=== PATIENT | female | born 1985 | race Asian ===

== ENCOUNTER 2017-02-23 14:47 | Emergency (ER) | payer BC ==
[2017-02-23 14:51] VITALS: BP 142/57; PULSE 71; TEMP 98; BMI 23.7
--- NOTE | 2017-02-23 15:19 | PDOC ---
History of Present Illness - General History Source: Patient Exam Limitations: No Limitations - History of Present Illness Initial Comments: 02/23/17 16:09 The patient is a 31 year old female with a significant past medical history of hypothyroidism, who presents to the ED accompanied with for intermittent abdominal pain for 4 days. She states she ate bread this morning with eggs and subsequently starting feeling abdominal pain radiating to the back. She states eating food makes the pain feel worse. Patient denies fever, chills, nausea, vomiting, diarrhea. She states she was experiencing migraine 2 days ago and was given migraine meds from her PCP. No fam history of gallstones. No allergies to meds. LMP: February 04, 2017 <Sandeep Landeros - Last Filed: 02/23/17 18:15> <Jair Rowell - Last Filed: 02/23/17 18:21> - General Chief Complaint: Pain Stated Complaint: ABD PAIN Time Seen by Provider: 02/23/17 15:14 Past History <Sandeep Landeros - Last Filed: 02/23/17 18:15> - Past Medical History Suicide Attempt (Hx): No - Reproductive History (#): 2 Para: 2 Cervical CA: No Dysfunctional Uterine Bleeding: No Ectopic : No Endometrial CA: No Polycystic Ovaries: No Therapeutic (s) & number: No Tubal Ligation: No Spontaneous : 1 - Psycho/Social/Smoking Cessation Hx Anxiety: No Suicidal Ideation: No Smoking History: Never smoked Number of Cigarettes Smoked Daily: 0 Hx Alcohol Use: No Drug/Substance Use Hx: No Substance Use Type: None <Jair Rowell - Last Filed: 02/23/17 18:21> - Past Medical History Allergies/Adverse Reactions: Allergies Allergy/AdvReac Type Severity Reaction Status Date / Time No Known Allergies Allergy Verified 02/23/17 14:49 Home Medications: Ambulatory Orders Dicyclomine HCl [Bentyl -] 20 mg PO Q6H #28 tablet 02/23/17 Levothyroxine [Synthroid -] 75 mcg PO DAILY 02/23/17 Omeprazole 20 mg PO DAILY 02/23/17 Ranitidine [Zantac -] 300 mg PO ONCE #30 tablet 02/23/17 Review of Systems - Review of Systems Able to Perform ROS?: Yes Comments:: 02/23/17 16:09 GENERAL/CONSTITUTIONAL: No fever or chills. No weakness. HEAD, EYES, EARS, NOSE AND THROAT: No change in vision. No ear pain or discharge. No sore throat. CARDIOVASCULAR: No chest pain or shortness of breath. RESPIRATORY: No cough, wheezing, or hemoptysis. GASTROINTESTINAL: + abdominal pain radiating to the back. No nausea, vomiting, diarrhea or constipation. GENITOURINARY: No dysuria, frequency, or change in urination. MUSCULOSKELETAL: No joint or muscle swelling or pain. No neck or back pain. SKIN: No rash NEUROLOGIC: No headache, vertigo, loss of consciousness, or change in strength/ sensation. ENDOCRINE: No increased thirst. No abnormal weight change. HEMATOLOGIC/LYMPHATIC: No anemia, easy bleeding, or history of blood clots. ALLERGIC/IMMUNOLOGIC: No hives or skin allergy. <Sandeep Landeros - Last Filed: 02/23/17 18:15> *Physical Exam - Vital Signs Last Vital Signs Temp Pulse Resp BP Pulse Ox 98 F 71 18 142/57 99 02/23/17 14:49 02/23/17 14:49 02/23/17 14:49 02/23/17 14:49 02/23/17 14:49 - Physical Exam Comments: 02/23/17 16:10 GENERAL: Awake, alert, and fully oriented, in no acute distress HEAD: No signs of trauma EYES: PERRLA, EOMI, sclera anicteric, conjunctiva clear ENT: Auricles normal inspection, hearing grossly normal, nares patent, oropharynx clear without exudates. Moist mucosa NECK: Normal ROM, supple, no lymphadenopathy, JVD, or masses LUNGS: Breath sounds equal, clear to auscultation bilaterally. No wheezes, and no crackles HEART: Regular rate and rhythm, normal S1 and S2, no murmurs, rubs or gallops ABDOMEN: right upper quadrant tenderness to palpation. normoactive bowel sounds. No guarding, no rebound. No masses EXTREMITIES: Normal range of motion, no edema. No clubbing or cyanosis. No cords, erythema, or tenderness NEUROLOGICAL: Cranial nerves II through XII grossly intact. Normal speech, normal gait SKIN: Warm, Dry, normal turgor, no rashes or lesions noted. <Sandeep Landeros - Last Filed: 02/23/17 18:15> - Vital Signs Last Vital Signs Temp Pulse Resp BP Pulse Ox 98 F 71 18 142/57 99 02/23/17 14:49 02/23/17 14:49 02/23/17 14:49 02/23/17 14:49 02/23/17 14:49 <Jair Rowell - Last Filed: 02/23/17 18:21> ED Treatment Course - LABORATORY CBC & Chemistry Diagram: 02/23/17 15:45 02/23/17 15:45 - ADDITIONAL ORDERS Additional order review: 02/23/17 15:45 RBC 4.55 MCV 74.4 L MCHC 31.7 L RDW 17.2 H MPV 8.2 Neutrophils % 63.2 Lymphocytes % 18.4 D Monocytes % 5.1 Eosinophils % 12.8 H D Basophils % 0.5 - RADIOLOGY Radiology Studies Ordered: 02/23/17 18:15 EXAM: Ultrasound abdomen right upper quadrant IMAGES: 47 EXAM DATE AND TIME: 2017-02-23 16:18:19.0 REASON FOR EXAM: Right upper quadrant pain COMPARISON: None. FINDINGS: There are no stones or sludge in the gallbladder. The gallbladder wall is normal in thickness measuring 2.6 mm. No pericholecystic fluid. Presence or absence of a sonographic Black's was not reported The common bile duct is within normal limits measuring 3 mm The liver, pancreas and visualized portions of the abdominal aorta and IVC are unremarkable THIS DOCUMENT HAS BEEN ELECTRONICALLY SIGNED Eric Christine MD <Sandeep Landeros - Last Filed: 02/23/17 18:15> - LABORATORY CBC & Chemistry Diagram: 02/23/17 15:45 02/23/17 15:45 <Jair Rowell - Last Filed: 02/23/17 18:21> *DC/Admit/Observation/Transfer - Attestations Scribe Attestion: 02/23/17 16:11 Documentation prepared by Sandeep Landeros, acting as medical administrator for Jair Rowell MD/DO. <Sandeep Landeros - Last Filed: 02/23/17 18:15> - Discharge Dispostion Admit: No - Attestations Physician Attestion: 02/23/17 15:19 I, Dr. Jair Rowell, attest that this document has been prepared under my direction and personally reviewed by me in its entirety. I further attest, that it accurately reflects all work, treatment, procedures and medical decision -making performed by me. <Jair Rowell - Last Filed: 02/23/17 18:21> Diagnosis at time of Disposition: Biliary colic - Discharge Dispostion Disposition: HOME Condition at time of disposition: Improved - Prescriptions Prescriptions: Dicyclomine HCl [Bentyl -] 20 mg PO Q6H #28 tablet Ranitidine [Zantac -] 300 mg PO ONCE #30 tablet - Referrals Referrals: Bridget Henry MD [Primary Care Provider] - Matt Saul MD [Staff Physician] - - Patient Instructions Printed Discharge Instructions: DI for Biliary Colic Additional Instructions: Jan- All of your tests were normal but your symptoms indicate that the pain may be coming from your gallbladder. You need to follow up with a men's furnishings salesperson and you may need a test called a HIDA scan. Use the bentyl and the zantac for now. See the men's furnishings salesperson as soon as you can. Return to us if any problems. Decrease your fat intake. Best- Dr. Jair Rowell
[2017-02-23] MEDS ORDERED: morphine CARPU-JECT 4 MG/1 ML DISP.SYRIN IVPUSH ONE (15:30)
[2017-02-23] MEDS ORDERED: KETOROLAC TROMETHAMINE 30 MG/1 ML VIAL IVPUSH ONE (15:30)
[2017-02-23] MEDS ORDERED: ONDANSETRON 4 MG/2 ML VIAL IVPUSH ONE (15:30)
[2017-02-23] MEDS ORDERED: ONDANSETRON 4 MG/2 ML VIAL ONE (15:51)
[2017-02-23] MEDS ORDERED: KETOROLAC TROMETHAMINE 30 MG/1 ML VIAL ONE (15:51)
[2017-02-23] MEDS ORDERED: morphine CARPU-JECT 4 MG/1 ML DISP.SYRIN ONE (15:51)
[2017-02-23 16:02] LABS: BASOPHIL 0.5 % (0-2.0); EOSINOPHIL 12.8 % (0-4.5); MCH 23.6 pg (25.7-33.7); MCHC 31.7 g/dl (32.0-36.0); MEAN CELL VOLUME 74.4 fl (80-96); MEAN PLT VOLUME 8.2 fl (7.5-11.1); NEUTROPHILS 63.2 % (42.8-82.8); PLATELET COUNT 312 K/MM3 (134-434); RDW 17.2 % (11.6-15.6); WHITE BLOOD COUNT 7.5 K/mm3 (4.0-10.0)
[2017-02-23] MEDS ORDERED: SODIUM CHLORIDE 1,000 ML IV ONE (16:17)
[2017-02-23 16:22] LABS: URINE APPEARANCE CLEAR; URINE BILIRUBIN NEGATIVE (NEGATIVE); URINE BLOOD NEGATIVE (NEGATIVE); URINE COLOR STRAW; URINE GLUCOSE (UA) NEGATIVE (NEGATIVE); URINE KETONE NEGATIVE (NEGATIVE); URINE LEUK ESTERASE NEGATIVE (NEGATIVE); URINE NITRITE NEGATIVE (NEGATIVE); URINE PROTEIN NEGATIVE (NEGATIVE); URINE UROBILINOGEN NEGATIVE mg/dL (0.2-1.0)
[2017-02-23 16:32] LABS: ALBUMIN 3.8 g/dl (3.4-5.0); ALK PHOS 83 U/L (45-117); ANION GAP 8 (8-16); BILIRUBIN,TOTAL 0.3 mg/dL (0.2-1.0); CALCIUM 9.3 mg/dL (8.5-10.1); CO2 27 mmol/L (21-32); CREATININE 0.6 mg/dL (0.55-1.02); GLUCOSE,RANDOM 71 mg/dL (74-106); SGPT/ALT 21 U/L (12-78); TOT PROT 7.6 g/dl (6.4-8.2)
[2017-02-23 16:37] LABS: SGOT/AST 26 U/L (15-37)
== END 2017-02-23 18:48 | disposition home or self-care (01) ==
LOC: JER 14:47
PROC: 3E0337Z Introduction of Electrolytic and Water Balance Substance into Peripheral Vein, Percutaneous Approach (ICD-10-PCS; principal; 2017-02-23)
PROC: 3E033NZ Introduction of Analgesics, Hypnotics, Sedatives into Peripheral Vein, Percutaneous Approach (ICD-10-PCS; 2017-02-23)
PROC: 3E0333Z Introduction of Anti-inflammatory into Peripheral Vein, Percutaneous Approach (ICD-10-PCS; 2017-02-23)
PROC: 3E033GC Introduction of Other Therapeutic Substance into Peripheral Vein, Percutaneous Approach (ICD-10-PCS; 2017-02-23)
DX: K80.50 Calculus of bile duct without cholangitis or cholecystitis without obstruction (principal); E03.9 Hypothyroidism, unspecified
CPT/HCPCS: 36415; 76705-TC; 80053; 81003; 83690; 84703; 85025; 99284-25

== ENCOUNTER 2020-07-06 23:03 | Emergency (ER) | payer BC ==
[2020-07-06 23:10] VITALS: BP 133/72; PULSE 86; TEMP 98.1; BMI 23.6
[2020-07-07] MEDS ORDERED: METOCLOPRAMIDE HCL INJECTION 10 MG/2 ML VIAL IVPB ONE (00:05)
[2020-07-07] MEDS ORDERED: SODIUM CHLORIDE 0.9% 500 ML INFUS.BAG IV ONE (00:05)
[2020-07-07] MEDS ORDERED: METOCLOPRAMIDE HCL INJECTION 10 MG/2 ML VIAL ONE (00:32)
[2020-07-07 00:47] LABS: BASO % 0.3 % (0-2.0); EOS % 0.1 % (0-4.5); HEMOGLOBIN 12.9 GM/dL (10.7-15.3); LYMPH % 7.9 % (8-40); MCH 28.3 pg (25.7-33.7); MCHC 33.9 g/dl (32.0-36.0); MEAN CELL VOLUME 83.6 fl (80-96); MEAN PLT VOLUME 7.7 fl (7.5-11.1); MONO % 2.7 % (3.8-10.2); PLATELET COUNT 367 K/MM3 (134-434); RBC 4.55 M/mm3 (3.60-5.2); RDW 13.8 % (11.6-15.6); WHITE BLOOD COUNT 10.2 K/mm3 (4.0-10.0)
[2020-07-07 01:10] LABS: POTASSIUM 3.9 mmol/L (3.5-5.1)
[2020-07-07 01:12] LABS: CALCIUM 9.3 mg/dL (8.5-10.1)
[2020-07-07 01:13] LABS: ALBUMIN 4.1 g/dl (3.4-5.0)
[2020-07-07 01:16] LABS: CREATININE 0.7 mg/dL (0.55-1.3)
[2020-07-07 01:17] LABS: BILIRUBIN,TOTAL 0.3 mg/dL (0.2-1); TOT PROT 8.1 g/dl (6.4-8.2)
[2020-07-07] MEDS ORDERED: ACETAMINOPHEN 1000 MG/100 ML VIAL (NON FORMULARY) IVPB ONE (02:12)
[2020-07-07] MEDS ORDERED: ACETAMINOPHEN INJECTION 100 ML IVPB ONE (02:41)
[2020-07-07] MEDS ORDERED: KETOROLAC TROMETHAMINE 15 MG/ML VIAL IVPUSH ONE (04:00)
== END 2020-07-07 04:26 | disposition home or self-care (01) ==
LOC: JER 23:03
PROC: 3E0333Z Introduction of Anti-inflammatory into Peripheral Vein, Percutaneous Approach (ICD-10-PCS; principal; 2020-07-06)
PROC: 3E0333Z Introduction of Anti-inflammatory into Peripheral Vein, Percutaneous Approach (ICD-10-PCS; 2020-07-06)
PROC: 3E033GC Introduction of Other Therapeutic Substance into Peripheral Vein, Percutaneous Approach (ICD-10-PCS; 2020-07-06)
DX: R51.9 Headache, unspecified (principal); R11.2 Nausea with vomiting, unspecified
CPT/HCPCS: 36415; 70450-TC; 80053; 84703; 85025; 99284-25; J0131

== ENCOUNTER 2021-02-05 16:48 | Emergency (ER) | payer BC, OTHER ==
[2021-02-05 16:53] VITALS: BP 136/84; PULSE 98; TEMP 97.8; BMI 22.1
[2021-02-05] MEDS ORDERED: KETOROLAC TROMETHAMINE 60 MG/2 ML VIAL IM ONE (17:40)
[2021-02-05] MEDS ORDERED: KETOROLAC TROMETHAMINE 30 MG/1 ML VIAL ONE (17:41)
== END 2021-02-05 18:00 | disposition home or self-care (01) ==
LOC: JERFT 16:48
PROC: 3E023GC Introduction of Other Therapeutic Substance into Muscle, Percutaneous Approach (ICD-10-PCS; principal; 2021-02-05)
DX: M25.531 Pain in right wrist (principal)
CPT/HCPCS: 99284-25

== ENCOUNTER 2022-03-29 22:19 | Emergency (ER) | payer OTHER ==
[2022-03-29 22:25] VITALS: BP 137/87; PULSE 62; RESP 18; BMI 23.2
[2022-03-29] MEDS ORDERED: KETOROLAC TROMETHAMINE 10 MG TABLET PO ONE (23:50)
[2022-03-29] MEDS ORDERED: SODIUM CHLORIDE 1,000 ML IV STA (23:50)
[2022-03-29] MEDS ORDERED: METOCLOPRAMIDE HCL 10 MG TABLET (FP) PO ONE (23:50)
[2022-03-29] MEDS ORDERED: METOCLOPRAMIDE HCL INJECTION 10 MG/2 ML VIAL IVPB ONE (23:59)
[2022-03-30] MEDS ORDERED: KETOROLAC TROMETHAMINE 15 MG/ML VIAL IVPUSH ONE
[2022-03-30] MEDS ORDERED: METOCLOPRAMIDE HCL INJECTION 10 MG/2 ML VIAL ONE (00:07)
[2022-03-30] MEDS ORDERED: KETOROLAC TROMETHAMINE 15 MG/ML VIAL ONE (00:08)
== END 2022-03-30 02:12 | disposition home or self-care (01) ==
LOC: JER 22:19
PROC: 3E033GC Introduction of Other Therapeutic Substance into Peripheral Vein, Percutaneous Approach (ICD-10-PCS; principal; 2022-03-29)
DX: R51.9 Headache, unspecified (principal)
CPT/HCPCS: 99284-25